=== PATIENT | male | born 1980 | race Caucasian/White ===

== ENCOUNTER 2016-08-09 12:55 | Emergency (ER) | payer OTHER ==
[~2016-08-09] VITALS: Ht 182.9 cm; Wt 86.2 kg
[~2016-08-09 12:55] MED LIST: ALPR0.2550 PO; AMPH20CA3 PO; CEFE2PIG IV; CEPH500C PO; CYCL10TA9 PO; DICY10CA26 PO; K-VANC1PB IV; MTR500T PO; ONDAN4ODT PO
--- OUTSIDE RECORDS SUMMARY | 2016-08-09 13:01 | XMS REPORT | Continuity of Care Document ---
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 If you do not see the information that you expected, contact Release of Information in the Health Information Management department at [phone] for further assistance in locating additional records.[facility] Active Allergies and Adverse Reactions Not on File Current Medications Not on file Active Problems Not on file Social History Tobacco Use Types Packs/Day Years Used Date Never Assessed Plan of Care Health Maintenance Due Date Last Done Comments Physical (Comprehensive) 1989 Exam Pertussis Vaccine 1993 Tetanus Vaccine 1999 Influenza Vaccine 03/16/2015 Results from Last 3 Months Not on file
--- NOTE | 2016-08-09 13:46 | ED General ---
General Chief Complaint: General Problems/Pain Stated Complaint: LOWER ABD PAIN Nursing Triage Note: PT C/O L INGUINAL HERNIA SWELLING AND PAIN. Nursing Sepsis Screen: No Definite Risk Source of Information: Patient Exam Limitations: No Limitations History of Present Illness Time Seen by Provider: 13:46 Initial Comments 36-year-old male patient presents to the emergency department complains of left groin pain for proximally 2 weeks. Patient states he had a left inguinal hernia repaired approximately 15 years ago and has had chronic mild pain at the incision site since then. Reports of last 2 weeks noticed increased pain. Initially reported swelling to the RN, but now states he has not had any swelling. Patient states he did begin lifting weights 2 weeks ago. Denies noticing any bulging. Location Injury Occurred: denies known injury. Timing/Duration: Intermittent, Other (2 weeks) Modifying Factors: worse with Medication (no improvement with ibuprofen), worse with Movement Allergies and Home Medications Allergies Coded Allergies: No Known Drug Allergies (Unverified , 06/25/12) Home Medications Alprazolam 0.25 Mg Tab.rapdis 0.25 MG PO Q6H PRN PRN ANXIETY (Reported) Amphet Asp/Amphet/D-Amphet 20 Mg Cap.sr.24h 20 MG PO DAILY (Reported) Cefepime Hcl/D5w 2 Gm/50 Ml Piggyback 24Days 2 GM IV Q12H Prescribed by: MAXI CAT on 02/02/15 1151 Cyclobenzaprine Hcl 10 Mg Tablet #15 1 EACH PO Q8H Prescribed by: SEBASTIAN HARMON on 02/03/15 0310 Diclofenac Sodium 75 Mg Tablet.dr #20 75 MG PO BID Prescribed by: OLIMPIA DUBON on 08/09/16 1403 Metronidazole 500 Mg Tab #70 500 MG PO TID Prescribed by: MAXI CAT on 02/02/15 1151 Prednisone 20 Mg Tab #10 40 MG PO DAILY Prescribed by: OLIMPIA DUBON on 08/09/16 1403 Tramadol HCl 50 Mg Tablet #10 50 MG PO Q6H PRN PRN PAIN Prescribed by: OLIMPIA DUBON on 08/09/16 1403 Vancomycin Hcl 1,000 Mg/250 Ml Soln 24Days 1,500 MG IV Q12H Prescribed by: MAXI CAT on 02/02/15 1151 Constitutional: No chills, No diaphoresis, No fever, No malaise Respiratory: no symptoms reported Cardiovascular: no symptoms reported Gastrointestinal: No abdominal pain, No constipation, No diarrhea, No loss of appetite, No nausea, No vomiting Genitourinary: No decreased output, No discharge, No dysuria, No frequency, No hematuria, pain (left inguinal pain) Musculoskeletal: no symptoms reported Skin: no symptoms reported All Other Systems Reviewed Negative Unless Noted: Yes (Negative excepted noted.) Past Agiwfxk-Ssuuze-Twqhqh Hx Patient Social History Alcohol Use: Occasionally Uses Recreational Drug Use: Yes Drug of Choice: MARIJUANA Smoking Status: Current Everyday Smoker Type Used: Cigarettes Recent Foreign Travel: No Contact w/Someone Who Travel: No Recent Infectious Disease Expo: No Recent Hopitalizations: No Physical Abuse Screen: No Sexual Abuse: No Immunizations Up To Date Tetanus Booster (TDap): Less than 5yrs Date of Influenza Vaccine: May 16, 2012 Surgeries HX Surgeries: Yes (SKIN CA REMOVED, PICC LINE PLACEMENT, LEFT INGUINAL HERNIA, PYLORIC STENOSIS) Respiratory Hx Respiratory Disorders: No Cardiovascular Hx Cardiac Disorders: No Neurological Hx Neurological Disorders: No Genitourinary Hx Genitourinary Disorders: Yes (chronic left inguinal pain) Gastrointestinal Hx Gastrointestinal Disorders: No Musculoskeletal Hx Musculoskeletal Disorders: Yes Musculoskeletal Disorders: Fractures Endocrine Hx Endocrine Disorders: No HEENT HX ENT Disorders: No Cancer Hx Cancer: Yes (REMOVED LAST YEAR) Cancer: Skin Psychosocial Hx Psychiatric Problems: Yes (EXTENSIVE PSYCH ISSUES) Behavioral Health Disorders: ADD/ADHD, Anxiety Integumentary HX Skin/Integumentary Disorder: No Blood Transfusions Hx Blood Disorders: No Reviewed Nursing Assessment Reviewed/Agree w Nursing PMH: Yes Family Medical History Significant Family History: No Pertinent Family Hx Physical Exam Vital Signs Vital Sign - Last 12Hours 08/09/16 13:31 Temp 98.1 Pulse 95 Resp 16 B/P 137/95 Pulse Ox 98 O2 Delivery Room Air Capillary Refill : Less Than 3 Seconds General Appearance: No Apparent Distress WD/WN Other (patient moves about the room without difficulty.) Respiratory: Lungs Clear Normal Breath Sounds No Respiratory Distress Cardiovascular: Regular Rate, Rhythm No Murmur Gastrointestinal: Normal Bowel Sounds No Organomegaly SoftNo Distended, No Hernia, No Mass, Tenderness (mild to moderate tenderness overlying the well- healed left inguinal incision w/o evidence of bulging, mass, swelling, erythema , or warmth.) Extremity: Normal Capillary Refill Normal Inspection Neurologic/Psychiatric: Alert Oriented x3 Normal Mood/Affect Skin: Normal Color Warm/Dry Other (left inguinal well-healed surgical scar consistent with past surgical history.) Progress/Results/Core Measures Results/Orders My Orders Orders-OLIMPIA DUBON Ibuprofen Tablet (Motrin Tablet) (08/09/16 13:56) Vital Signs/I&O Vital Sign - Last 12Hours 08/09/16 08/09/16 13:31 14:18 Temp 98.1 98.1 Pulse 95 95 Resp 16 16 B/P 137/95 Pulse Ox 98 98 O2 Delivery Room Air Blood Pressure Mean: 109 Departure Communication Progress Notes Patient seen and evaluated. Patient is driving himself home from the emergency department. Patient given ibuprofen 800 mg in the emergency department. Discharge to home with prednisone, diclofenac, and tramadol. All return precautions were discussed with the patient as described in the discharge instructions of this report. Patient instructed to follow-up with his primary care physician for continued symptoms. Patient voices understanding and agrees with the treatment plan. Impression Impression: Primary Impression: Left inguinal pain Disposition: HOME, SELF-CARE Condition: Improved Departure-Patient Inst. Decision time for Depature: 13:58 Referrals: MAXI CAT DO (PCP/Family) Primary Care Physician Patient Instructions: Groin Strain (DC) Add. Discharge Instructions: All discharge instructions reviewed with patient and/or family. Voiced understanding. Medications as instructed. Tylenol extra strength over-the- counter as directed for pain. Ice packs or heating pad as needed for pain. No heavy lifting, squatting, climbing, bending 7-10 days. Increase activity as tolerated. Follow-up with Dr. Cat as an outpatient for recheck if no improvement in symptoms. Return to the emergency department for worsened symptoms or any other concerns. Scripts Tramadol HCl 50 Mg Scydxf51 Mg PO Q6H PRN PAIN #10 TAB Ref 0 Prov:OLIMPIA DUBON 08/09/16 Diclofenac Sodium 75 Mg Tablet.dr75 Mg PO BID #20 TAB Ref 0 Prov:OLIMPIA DUBON 08/09/16 Prednisone 20 Mg Tab40 Mg PO DAILY #10 TAB Ref 0 Prov:OLIMPIA DUBON 08/09/16 Work/School Note: Work Release Form Date Seen in the Emergency Department: Aug 09, 2016 Return to Work: Aug 09, 2016 Other Restrictions Listed Below: no heavy lifting, bending, climbing, or squatting x7-10d. OLIMPIA DUBON Aug 09, 2016 13:46
[2016-08-09] MEDS ORDERED: IBUPROFEN 800 MG (MOTRIN) TAB PO STA (13:56)
[2016-08-09] MEDS ORDERED: TRAM50TA2 PO (14:03)
[2016-08-09] MEDS ORDERED: DICL75TA2 PO (14:03)
[2016-08-09] MEDS ORDERED: PRD20T PO (14:03)
[2016-08-09 14:18] VITALS: BP 137/95
== END 2016-08-09 14:15 | disposition home or self-care (01) ==
LOC: EDUNIT# 12:55 → ER 12:58
DX: R10.32 Left lower quadrant pain (principal); F17.210 Nicotine dependence, cigarettes, uncomplicated
CPT/HCPCS: 99283

== ENCOUNTER 2016-08-30 18:56 | Emergency (ER) | payer OTHER ==
[~2016-08-30 18:56] MED LIST changes: +DICL75TA2 PO; +PRD20T PO; +TRAM50TA2 PO
--- OUTSIDE RECORDS SUMMARY | 2016-08-30 19:01 | XMS REPORT | Continuity of Care Document ---
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 If you do not see the information that you expected, contact Release of Information in the Health Information Management department at [phone] for further assistance in locating additional records.[facility] Active Allergies and Adverse Reactions Not [...]
== END 2016-08-30 19:45 | disposition left against medical advice (07) ==
LOC: EDUNIT# 18:56 → ER 18:58
DX: M54.5 Low back pain (principal); Z53.21 Procedure and treatment not carried out due to patient leaving prior to being seen by health care provider

== ENCOUNTER 2020-07-04 18:49 | Emergency (ER) | payer BC, OTHER ==
[~2020-07-04] VITALS: Ht 180 cm; Wt 81.0 kg
[~2020-07-04 18:49] MED LIST changes: -TRAM50TA2 PO; +TRM50T PO
[2020-07-04 19:44] LABS: BASOPHILS # (AUTO) 0.1 10^3/uL (0.0-0.1); BASOPHILS % (AUTO) 1 % (0-10); EOSINOPHILS # (AUTO) 0.2 10^3/uL (0.0-0.3); EOSINOPHILS % (AUTO) 2 % (0-10); HEMATOCRIT 45 % (40-54); HEMOGLOBIN 15.2 g/dL (13.3-17.7); LYMPHOCYTES # (AUTO) 3.1 10^3/uL (1.0-4.0); LYMPHOCYTES % (AUTO) 45 % (12-44); MEAN CORPUSCULAR HEMOGLOBIN 28 pg (25-34); MEAN CORPUSCULAR HGB CONC 34 g/dL (32-36); MEAN CORPUSCULAR VOLUME 84 fL (80-99); MEAN PLATELET VOLUME 10.1 fL (9.0-12.2); MONOCYTES # (AUTO) 0.5 10^3/uL (0.0-1.0); MONOCYTES % (AUTO) 7 % (0-12); NEUTROPHILS # (AUTO) 3.1 10^3/uL (1.8-7.8); NEUTROPHILS % (AUTO) 45 % (42-75); PLATELET COUNT 245 10^3/uL (130-400); WHITE BLOOD COUNT 6.9 10^3/uL (4.3-11.0)
[2020-07-04 19:52] LABS: ALBUMIN 4.4 GM/DL (3.2-4.5); CHLORIDE 101 MMOL/L (98-107); POTASSIUM 3.8 MMOL/L (3.6-5.0); SODIUM 136 MMOL/L (135-145)
[2020-07-04 19:54] LABS: GLUCOSE 113 MG/DL (70-105)
[2020-07-04 19:55] LABS: CARBON DIOXIDE 22 MMOL/L (21-32)
[2020-07-04 19:56] LABS: BILIRUBIN,TOTAL 0.3 MG/DL (0.1-1.0)
[2020-07-04 19:57] LABS: ALKALINE PHOSPHATASE 113 U/L (40-136)
[2020-07-04 19:58] LABS: CREATININE SERUM 0.83 MG/DL (0.60-1.30); GFR ESTIMATED > 60
[2020-07-04 19:59] LABS: BUN/CREATININE RATIO 14
[2020-07-04 20:01] LABS: ALANINE AMINOTRANSFERASE 115 U/L (0-55)
--- NOTE | 2020-07-04 20:03 | ED Respiratory ---
General Chief Complaint: Respiratory Problems Stated Complaint: SOB History of Present Illness Date Seen by Provider: Jul 04, 2020 Time Seen by Provider: 18:55 Initial Comments 40 year old male presents for SOA. He reports that his symptoms are mild and they began last evening. He denies any chest pain. He has normal taste and smell. He has no known Covid exposure, past testing or a positive result. His symptoms were minimal throughout the day, he was grilling tonight when his symptoms got worse and his recommended he come out for evaluation. He quit smoking approximately 2 months ago and was on Chantix until a week ago. Timing/Duration: yesterday Severity: mild Prior Episodes/Possible Cause: no prior episodes Associated Symptoms: No chest pain/soreness; cough (dry); No fever/chills, No lightheadedness, No muscle aches, No nasal congestion, No nasal drainage; shortness of breath Allergies and Home Medications Allergies Coded Allergies: No Known Drug Allergies (Unverified , 06/25/12) Home Medications Alprazolam 0.25 Mg Tab.rapdis, 0.25 MG PO Q6H PRN for ANXIETY, (Reported) Amphet Asp/Amphet/D-Amphet 20 Mg Cap.sr.24h, 20 MG PO DAILY, (Reported) Cefepime Hcl/D5w 2 Gm/50 Ml Piggyback, 2 GM IV Q12H Prescribed by: MAXI CAT on 02/02/15 115 Cyclobenzaprine Hcl 10 Mg Tablet, 1 EACH PO Q8H Prescribed by: SEBASTIAN HARMON on 02/03/15 0310 Diclofenac Sodium 75 Mg Tablet.dr, 75 MG PO BID Prescribed by: OLIMPIA DUBON on 08/09/16 140 Metronidazole 500 Mg Tab, 500 MG PO TID Prescribed by: MAXI CAT on 02/02/15 115 Prednisone 20 Mg Tab, 40 MG PO DAILY Prescribed by: OLIMPIA DUBON on 08/09/16 140 Tramadol HCl 50 Mg Tablet, 50 MG PO Q6H PRN for PAIN Prescribed by: OLIMPIA DUBON on 08/09/16 140 Vancomycin Hcl 1,000 Mg/250 Ml Soln, 1,500 MG IV Q12H Prescribed by: MAXI CAT on 02/02/15 115 Patient Home Medication List Home Medication List Reviewed: Yes Review of Systems Review of Systems Constitutional: no symptoms reported, see HPI; No fever, No malaise, No weakness EENTM: see HPI, no symptoms reported Respiratory: see HPI; No cough; short of breath Cardiovascular: no symptoms reported, see HPI; No chest pain Gastrointestinal: see HPI; No abdominal pain, No constipation, No loss of appetite; nausea (Mild, not requesting medication for symptoms at this time); No vomiting Genitourinary: no symptoms reported, see HPI Musculoskeletal: no symptoms reported, see HPI All Other Systems Reviewed Negative Unless Noted: Yes Past Eykcatz-Bqfwag-Utdckk Hx Past Med/Social Hx: Reviewed Nursing Past Med/Soc Hx Patient Social History Drug of Choice: MARIJUANA Type Used: Cigarettes Recent Foreign Travel: No Contact w/Someone Who Travel: No Recent Hopitalizations: No Immunizations Up To Date Tetanus Booster (TDap): Less than 5yrs Date of Influenza Vaccine: May 16, 2012 Past Medical History Fractures Skin ADD/ADHD, Anxiety Family Medical History No Pertinent Family Hx Physical Exam Capillary Refill : Height: 6'0.00" Weight: 190lbs. 5.0oz. 86.949079cl; 21.09 BMI Method:Stated General Appearance: WD/WN, no apparent distress Eyes: Bilateral Eye Normal Inspection, Bilateral Eye PERRL, Bilateral Eye EOMI HEENT: PERRL/EOMI, normal ENT inspection, TMs normal, pharynx normal Neck: non-tender, full range of motion, supple, normal inspection Respiratory: chest non-tender, lungs clear, normal breath sounds, no respiratory distress Cardiovascular: normal peripheral pulses, regular rate, rhythm Gastrointestinal: normal bowel sounds, non tender, soft Extremities: normal range of motion, non-tender, normal inspection, no pedal edema, no calf tenderness, normal capillary refill Neurologic/Psychiatric: no motor/sensory deficits, alert, normal mood/affect, oriented x 3 Skin: normal color, warm/dry Progress/Results/Core Measures Suspected Sepsis SIRS Temperature: Pulse: Respiratory Rate: Laboratory Tests 07/04/20 19:35: White Blood Count 6.9 Blood Pressure / Mean: Laboratory Tests 07/04/20 19:35: Creatinine 0.83, Platelet Count 245, Total Bilirubin 0.3 Results/Orders Lab Results Laboratory Tests Test 07/04/20 19:35 Range/Units White Blood Count 6.9 4.3-11.0 10^3/uL Red Blood Count 5.36 4.30-5.52 10^6/uL Hemoglobin 15.2 13.3-17.7 g/dL Hematocrit 45 40-54 % Mean Corpuscular Volume 84 80-99 fL Mean Corpuscular Hemoglobin 28 25-34 pg Mean Corpuscular Hemoglobin Concent 34 32-36 g/dL Red Cell Distribution Width 13.2 10.0-14.5 % Platelet Count 245 130-400 10^3/uL Mean Platelet Volume 10.1 9.0-12.2 fL Immature Granulocyte % (Auto) 0 % Neutrophils (%) (Auto) 45 42-75 % Lymphocytes (%) (Auto) 45 H 12-44 % Monocytes (%) (Auto) 7 0-12 % Eosinophils (%) (Auto) 2 0-10 % Basophils (%) (Auto) 1 0-10 % Neutrophils # (Auto) 3.1 1.8-7.8 10^3/uL Lymphocytes # (Auto) 3.1 1.0-4.0 10^3/uL Monocytes # (Auto) 0.5 0.0-1.0 10^3/uL Eosinophils # (Auto) 0.2 0.0-0.3 10^3/uL Basophils # (Auto) 0.1 0.0-0.1 10^3/uL Immature Granulocyte # (Auto) 0.0 0.0-0.1 10^3/uL Erythrocyte Sedimentation Rate 1 0-15 MM/HR D-Dimer 0.43 0.00-0.49 UG/ML Sodium Level 136 135-145 MMOL/L Potassium Level 3.8 3.6-5.0 MMOL/L Chloride Level 101 98-107 MMOL/L Carbon Dioxide Level 22 21-32 MMOL/L Anion Gap 13 5-14 MMOL/L Blood Urea Nitrogen 12 7-18 MG/DL Creatinine 0.83 0.60-1.30 MG/DL Estimat Glomerular Filtration Rate > 60 BUN/Creatinine Ratio 14 Glucose Level 113 H 70-105 MG/DL Calcium Level 9.0 8.5-10.1 MG/DL Corrected Calcium 8.7 8.5-10.1 MG/DL Total Bilirubin 0.3 0.1-1.0 MG/DL Aspartate Amino Transf (AST/SGOT) 52 H 5-34 U/L Alanine Aminotransferase (ALT/SGPT) 115 H 0-55 U/L Alkaline Phosphatase 113 40-136 U/L Lactate Dehydrogenase 211 125-220 U/L C-Reactive Protein High Sensitivity 0.18 0.00-0.50 MG/DL Total Protein 7.0 6.4-8.2 GM/DL Albumin 4.4 3.2-4.5 GM/DL Coronavirus 2018 (BOZENA) Negative Negative Micro Results Microbiology 07/04/20 Influenza Types A,B Antigen (HUSSAIN) - Final, Complete My Orders Orders - GABRIELA CH Cbc With Automated Diff (07/04/20 19:32) Comprehensive Metabolic Panel (07/04/20 19:32) Fibrin Degradation Products (07/04/20 19:32) Hs C Reactive Protein (07/04/20 19:32) Erythrocyte Sedimentation Rate (07/04/20 19:32) LDH (07/04/20 19:32) Influenza A And B Antigens (07/04/20 19:32) Chest 1 View, Ap/Pa Only (07/04/20 19:32) Coronavirus Sars-Cov-2 So 2019 (07/04/20 19:32) Covid 19 Inhouse Test (07/04/20 19:32) Vital Signs/I&O Capillary Refill : Progress Note : Time: 18:55 Progress Note Patient seen and evaluated, will obtain chest x-ray, labs and reevaluate. Vital signs are stable, patient is afebrile and SaO2 is 96 to 99% on room air. He has no respiratory distress. 1945 rapid Covid test and Flu A/B negative. Awaiting Chest X-ray 2019 labs are all within normal limits. Patient has remained afebrile, SPO2 is remained 98% on room air. No shortness of air. Discharge instructions, quarantine requirements and return precautions reviewed with the patient. All questions answered. Diagnostic Imaging Diagonstic Imaging: Xray Plain Films/CT/US/NM/MRI: chest Comments NAME: JAKESHARA Jaja MED REC#: [id number] PT STATUS: REG ER : 1980 PHYSICIAN: GABRIELA CH ADMIT DATE: 07/04/20/ER Draft Date of Exam:07/04/20 CHEST 1 VIEW, AP/PA ONLY INDICATION: Pneumonia and shortness of breath. COMPARISON: Prior examination from 02/03/2015. FINDINGS: The heart size, mediastinal configuration, and pulmonary vascularity are within normal limits. There is no pleural effusion, pneumothorax, or pneumonia. The osseous structures are unremarkable. IMPRESSION: No acute cardiopulmonary abnormality. Dictated on workstation # [id number] Dict: 07/04/202004 Trans: 07/04/202006 [id number] Interpreted by: DOC TORRES MD Electronically signed by: Departure Impression Primary Impression: Person under investigation for COVID-19 Additional Impression: SOB (shortness of breath) Disposition: HOME, SELF-CARE Condition: Stable Departure-Patient Inst. Decision time for Depature: 20:20 Referrals: MAXI CAT DO (PCP/Family) Primary Care Physician Patient Instructions: Coronavirus Disease 2019 (COVID-19) (DC) Add. Discharge Instructions: You need to quarantine at home until your Covid send out test results are called to you, further isolation or quarantine will be explained at that time. It should be within the next 48 hours. Activity as tolerated, at home. You may walk around the house, limit time being sedentary, sleep or rest on your stomach, take Deep Breaths every hour. For respiratory congestion, you may take Mucinex 600 mg 1 tablet twice daily. Increase water intake, 16 ounces every 2 hours while awake. You may alternate between Tylenol 650 mg and ibuprofen 600 mg every 4 hours for pain or fever. Take an immune vitamin that has vitamin C, vitamin D and zinc. Take aspirin 81 mg once daily. Call your primary care provider, Dr. Cat, if your symptoms are not improving or worsen. Return to the emergency department for new, urgent healthcare needs. All discharge instructions reviewed with patient and/or family. Voiced understanding. Work/School Note: Work Release Form Date Seen in the Emergency Department: Jul 04, 2020 Other Restrictions Listed Below: Will release to work, pending symptom s or COVID testing. Restrictions: No work until Covid Results or 48 hours symptom free. Copy Copies To 1: MAXI CAT AMY ARNP Jul 04, 2020 20:03
--- NOTE | 2020-07-04 20:07 | Diagnostic Imaging Report ---
INDICATION: Pneumonia and shortness of breath. COMPARISON: Prior examination from 02/03/2015. FINDINGS: The heart size, mediastinal configuration, and pulmonary vascularity are within normal limits. There is no pleural effusion, pneumothorax, or pneumonia. The osseous structures are unremarkable. IMPRESSION: No acute cardiopulmonary abnormality. Dictated by: Dictated on workstation # [id number]
[2020-07-04 20:08] LABS: ERYTHROCYTE SEDIMENTATION RATE 1 MM/HR (0-15)
[2020-07-04 20:40] VITALS: BP 144/95
== END 2020-07-04 20:40 | disposition home or self-care (01) ==
LOC: EDUNIT# 18:49 → ER 18:51
DX: R06.02 Shortness of breath (principal); F41.9 Anxiety disorder, unspecified; Z20.828 Contact with and (suspected) exposure to other viral communicable diseases; Z79.52 Long term (current) use of systemic steroids
CPT/HCPCS: 71045; 80053; 83615; 85025; 85379; 85652; 86141; 87804; 99283; U0002; 36415; 87635